=== PATIENT | male | born 1955 | race Caucasian/White ===

== ENCOUNTER → 2023-06-18 10:24 | Outpatient (CLI) | payer MEDICARE, OTHER, SELFPAY ==
[2023-06-18 11:02] LABS: Hematocrit 40.8 % (41-53); Hemoglobin 14.1 g/dL (13.5-17.5); Mean Corpuscular HGB Conc 34.6 % (30-36); Mean Corpuscular Volume 83.8 fL (80-100); Platelet Count 282 X10^3/uL (150-400); Red Blood Cell Count 4.88 X10^6/uL (4.5-5.9); Red Cell Distribution Width 14.3 % (11.6-14.8); White Blood Cell Count 7.2 X10^3/uL (4.5-11.0)
[2023-06-18 11:08] LABS: Hemoglobin A1C% w Est Avg Glu 5.5 % (4.0-6.0)
[2023-06-18 11:20] LABS: Alanine Aminotransferase 32 IU/L (<50); Albumin 4.4 g/dL (3.5-5.0); Albumin Globulin Ratio 1.5 (1.0-2.8); Alkaline Phosphatase 52 U/L (38-126); Aspartate Aminotransferase 28 IU/L (17-59); BUN Creatinine Ratio 19.5 (6-22); Bilirubin Total 0.8 mg/dL (0.2-1.3); Blood Urea Nitrogen 23 mg/dL (9-20); Calcium 9.5 mg/dL (8.4-10.2); Carbon Dioxide 26 mmol/L (22-32); Chloride 104 mmol/L (98-107); Cholesterol 153 mg/dL (140-199); Estimated Glomerular Filt Rate > 60 mL/min (>60); Glucose 107 mg/dL (80-110); HDL Cholesterol 37 mg/dL (40-60); HEMOLYSIS < 15 (0-50); LDL Cholesterol Calculated 82 mg/dL (<100); Potassium 4.2 mmol/L (3.4-5.1); Sodium 139 mmol/L (137-145); Total Protein 7.4 g/dL (6.3-8.2); Triglycerides 171 mg/dL (35-150)
[2023-06-18 11:51] LABS: TSH w/ Reflex to FT4 6.83 uIU/mL (0.47-4.68)
[2023-06-18 12:41] LABS: Free T4, Direct Thyroxine 1.01 ng/dL (0.78-2.19)
== END ==
PROVIDERS: PCP Internal Medicine; Referring Provider Internal Medicine; Visit Provider Internal Medicine
DX: E78.2 Mixed hyperlipidemia (principal); R73.01 Impaired fasting glucose; N40.1 Benign prostatic hyperplasia with lower urinary tract symptoms; I10 Essential (primary) hypertension; N13.8 Other obstructive and reflux uropathy
CPT/HCPCS: 36415; 80053; 80061; 83036; 84153; 84439; 84443; 85027

== ENCOUNTER 2023-08-04 10:41 | Day surgery (SDC) | payer MEDICARE, OTHER, SELFPAY ==
--- NOTE | 2023-08-04 | PATH_ITS ---
[facility] Accession Number: [id number] No. of containers..01 Tissue . 01 Material submitted: . rectum - RECTAL POLYP . 01 Diagnosis: COLON, RECTUM, POLYP BIOPSY: - HYPERPLASTIC POLYP. TXN 08/11/2023 1029 Local . 01 Electronically signed: . Leatha Martin MD, Pathologist NPI- [id number] . 01 Gross description: . RECTAL POLYP: Received in formalin is 1 fragment(s) of mata, soft tissue measuring 0.5 x 0.3 x 0.1 cm submitted entirely in 1 cassette(s) /AAY 08/06/2023 0103 Local . 01 Pathologist provided ICD-10: Z12.11 . 01 CPT . 186996 Specimen Comment: A courtesy copy of this report has been sent to [phone] Performed at: 01 [facility] [address] [place] [address], [place], [place] [id number] MD King Alvarado MD Phone: [phone]
[2023-08-04] MEDS: LACTATED RINGERS 1,000 ML 42 ML IV (10:50)
[2023-08-04 10:56] VITALS: BMI 29.5
[2023-08-04 11:04] VITALS: BP 142/86; PULSE 73; RESP 18; TEMP 36.5; O2SAT 98
--- NOTE | 2023-08-04 11:57 | P.HP_ITS ---
History of Present Illness History of Present Illness Date Patient Seen: 08/04/23 Time Patient Seen: 11:57 Chief complaint: [facility] Narrative: 68-year-old man personal history of colonic polyps here for screening colonoscopy. No family history of intestinal malignancy. No abdominal concerns today including abdominal pain, unintentional weight loss blood per rectum anorexia. 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 household members: spouse Smoking Status: Current every day smoker alcohol intake: never Meds Home Medications and Allergies Home Medications Medication Instructions Recorded Confirmed Type atorvastatin 40 mg tablet 40 mg PO DAILY #90 tabs 06/17/23 08/04/23 Rx olmesartan 20 2 tab PO DAILY #90 tabs 06/17/23 08/04/23 Rx mg-hydrochlorothiazide 12.5 mg tablet tadalafil 5 mg tablet (Cialis) 5 mg PO DAILY #90 tabs 06/17/23 08/04/23 Rx Allergies Allergy/AdvReac Type Severity Reaction Status Date / Time tamsulosin AdvReac Mild Fatigued Verified 08/04/23 10:54 Exam Vital Signs (past 8 hours): - 08/04/23 11:04 Temperature 97.7 F Pulse Rate 73 Respiratory Rate 18 Blood Pressure 142/86 H Pulse Oximetry 98 Oxygen Delivery Method Room Air Oxygen Delivery Method Room Air Narrative Exam Narrative: General adult man alert oriented no acute distress Chest nonlabored respiration Extremities warm well perfused Assessment & Plan Assessment & Plan narrative: The patient requires colorectal screening and colonoscopy is recommended. Technical details were discussed. Risks, benefits, alternatives explained. Risks including but not limited to myocardial infarction, aspiration, bleeding, pain, missed lesion, incomplete examination, need for further radiographic studies, colonic perforation, and need for major abdominal surgery were discussed. All questions were answered to their satisfaction, and they are in agreement with this plan.
[2023-08-04 12:20] VITALS: BP 92/53; PULSE 70; RESP 10; TEMP 36.6; O2SAT 90
--- NOTE | 2023-08-04 12:20 | P.OP.COLON_ITS ---
Operative Date/Time/Diagnoses Date of procedure: 08/04/23 Time of procedure: 12:21 Pre-op diagnosis: Hx of polyps Post-op diagnosis: other (colonic polyp x 1) Procedure & Clinicians Study performed: colonoscopy Same procedure as scheduled: Yes Indications: Personal history of colonic polyps Colorectal screening Surgeon: Mervin Paul Procedure Notes Procedure in detail: The history and physical was performed/updated and the patient is ASA class is 2. The procedure was discussed in detail with the patient. Potential risks complications including infection, bleeding, missed diagnosis, perforation, need for surgery, and were explained. Their questions were answered and informed consent was obtained. Patient was brought to the procedure room and placed standard monitoring equipment. The patient's vital signs were monitored continuously throughout the entire procedure. Prior to starting time-out was performed. The patient was placed in the left lateral recumbent position. Procedural sedation was administered by anesthesia. Examination began with a thorough inspection of the perianal area there was no evidence of fissures, fistulae, external hemorrhoids or cutaneous malignancy. The colonoscopy scope was then placed into the anal canal and was advanced to the cecum, which was identified by the ileocecal valve, the appendiceal orifice and the confluence of the taenia. The scope was then slowly withdrawn examining colon thoroughly in all directions, irrigating it of any residual stool. The scope was retroflexed within the rectum The patient tolerated the procedure well. They will be discharged once criteria are met. The prep was of fair quality. The withdrawl time was 7 minutes. FINDINGS * Rectum-2 mm polyp removed with biopsy forceps * Sigmoid-extensive diverticulosis Specimen(s): other (Rectal polyp) Impression: Colonic polyp x1 Post-procedure Plan for aftercare: Follow-up is dependent on pathology findings Disposition: same day surgery
[2023-08-04 12:25] VITALS: BP 88/51; PULSE 60; RESP 18; O2SAT 94
[2023-08-04 12:30] VITALS: BP 99/57; PULSE 62; RESP 15; O2SAT 95
[2023-08-04 12:35] VITALS: BP 104/68; PULSE 63; RESP 13; O2SAT 95
[2023-08-04 12:52] VITALS: BP 127/80; PULSE 62; RESP 16; TEMP 36.6; O2SAT 98
== END 2023-08-04 13:09 | disposition home or self-care (01) ==
PROVIDERS: PCP Internal Medicine; Referring Provider Surgery; Visit Provider Surgery
PROC: 0DJD8ZZ Inspection of Lower Intestinal Tract, Via Natural or Artificial Opening Endoscopic (ICD-10-PCS; CPT 45378; principal; 2023-08-04 11:45)
DX: Z12.11 Encounter for screening for malignant neoplasm of colon (principal); K57.30 Diverticulosis of large intestine without perforation or abscess without bleeding; K62.1 Rectal polyp
CPT/HCPCS: 45380; J2704

== ENCOUNTER → 2023-12-21 14:07 | Outpatient (CLI) | payer MEDICARE, OTHER, SELFPAY ==
[2023-12-21 15:14] LABS: Hemoglobin A1C% w Est Avg Glu 5.6 % (4.0-6.0)
[2023-12-21 15:26] LABS: BUN Creatinine Ratio 16.1 (6-22); Blood Urea Nitrogen 18 mg/dL (9-20); Calcium 9.8 mg/dL (8.4-10.2); Carbon Dioxide 27 mmol/L (22-32); Chloride 107 mmol/L (98-107); Estimated Glomerular Filt Rate > 60 mL/min (>60); Glucose 98 mg/dL (80-110); HEMOLYSIS < 15 (0-50); Sodium 141 mmol/L (137-145)
[2023-12-21 15:43] LABS: Free T3, Triiodothyronine Free 3.78 pg/mL (2.77-5.27); Free T4, Direct Thyroxine 0.96 ng/dL (0.78-2.19)
[2023-12-21 15:56] LABS: Thyroid Stimulating Hormone 7.92 uIU/mL (0.47-4.68)
[2023-12-23 00:11] LABS: Thyroid Peroxidase Antibodies 119 IU/mL (0-34)
== END ==
LOC: LAB 14:09
PROVIDERS: PCP Internal Medicine; Referring Provider Internal Medicine; Visit Provider Internal Medicine
DX: R73.01 Impaired fasting glucose (principal); I10 Essential (primary) hypertension; R79.89 Other specified abnormal findings of blood chemistry
CPT/HCPCS: 36415; 80048; 83036; 84439; 84443; 84481; 86376

== ENCOUNTER → 2024-03-30 11:52 | Outpatient (CLI) | payer MEDICARE, OTHER, SELFPAY ==
[2024-03-30 13:24] LABS: TSH w/ Reflex to FT4 3.93 uIU/mL (0.47-4.68)
== END ==
LOC: LAB 11:53
PROVIDERS: PCP Internal Medicine; Referring Provider Internal Medicine; Visit Provider Internal Medicine
DX: E03.9 Hypothyroidism, unspecified (principal)
CPT/HCPCS: 36415; 84443

== ENCOUNTER → 2025-03-27 11:58 | Outpatient (CLI) | payer MEDICARE, OTHER, SELFPAY ==
[2025-03-27 12:57] LABS: Hemoglobin A1C% w Est Avg Glu 5.4 % (4.0-6.0)
[2025-03-27 13:24] LABS: Aspartate Aminotransferase 38 IU/L (17-59); BUN Creatinine Ratio 16.1 (6-22); Blood Urea Nitrogen 20 mg/dL (9-20); Calcium 9.5 mg/dL (8.4-10.2); Carbon Dioxide 24 mmol/L (22-32); Chloride 105 mmol/L (98-107); Cholesterol 141 mg/dL (140-199); Estimated Glomerular Filt Rate > 60 mL/min (>60); Glucose 106 mg/dL (70-99); HDL Cholesterol 37 mg/dL (40-60); HEMOLYSIS < 15 (0-50); LDL Cholesterol Calculated 78 mg/dL (<100); Potassium 4.2 mmol/L (3.4-5.1); Sodium 138 mmol/L (137-145); Triglycerides 131 mg/dL (35-150)
[2025-03-27 13:51] LABS: Prostate Specific Antigen 1.38 ng/mL (0.10-4.00)
== END ==
PROVIDERS: PCP Internal Medicine; Referring Provider Internal Medicine; Visit Provider Internal Medicine
DX: R73.01 Impaired fasting glucose (principal); E03.9 Hypothyroidism, unspecified; I10 Essential (primary) hypertension; E78.2 Mixed hyperlipidemia
CPT/HCPCS: 36415; 80048; 80061; 83036; 84153; 84450